=== PATIENT | male | born 1945 | race Caucasian/White ===

== ENCOUNTER 2017-03-14 06:00 | Day surgery (SDC) | payer MEDICARE, BC ==
[~2017-03-14] VITALS: Ht 182.9 cm; Wt 112.3 kg
[~2017-03-14 06:00] MED LIST: ALLO100T51 PO; AMOX500C2 PO; ASPI-558 PO; COLC0.6T44 PO; GLUC1CAP25 PO; MULT-806 PO; NEBI10TA PO
--- OUTSIDE RECORDS SUMMARY | 2017-03-14 06:04 | XMS REPORT | Continuity of Care Document ---
Author Author [facility] Organization [facility] Address Unknown Phone Unavailable Allergies Medications Problems Procedures Results Encounters ACCT No. Visit Date/Time Discharge Status Pt. Type Provider Facility Loc./Unit Complaint [id number] 10/05/2013 08:24:00 10/05/2013 23 :59:59 CLS Outpatient [id number] 09/21/2013 08:40:00 09/21/2013 23 :59:59 CLS Outpatient
--- OUTSIDE RECORDS SUMMARY | 2017-03-14 06:04 | XMS REPORT | Continuity of Care Document ---
Author Author Serena Saucedo LPN Ambulatory Address [address] [place] [address] Phone Care Team Providers Care Wireless Watcher Name Role Phone Tyrell Hodge PP Unavailable Payers Payer name Insurance type Covered alliance party ID Authorization(s) Unknown Problems Condition Effective Dates (start - stop) Clinical Status BPH - *Chronic Foreign body in ear - *Acute Other chronic otitis externa - *Chronic Syncope and collapse - *Resolved Hypertension, Benign - *Chronic Other and unspecified hyperlipidemia - *Chronic OTHER ABNORMAL GLUCOSE - *Resolved Osteoarthrosis, generalized, involving unspecified site - * Chronic Sleep Apnea - *Chronic BPH - *Chronic Gout, unspecified - *Chronic Hypertension, benign - *Chronic Hyperlipidemia, NOS - *Chronic Abnormal glucose - *Chronic Gout, unspecified - *Chronic Overweight (BMI 25-29) - *Chronic Family history of other cardiovascular diseases - *Chronic Other and unspecified hyperlipidemia - *Chronic Pain in joint involving lower leg - *Controlled BPH - *Chronic Gout, unspecified - *Chronic Hypertension, Benign - *Chronic Overweight - *Chronic Calculus of kidney - *Resolved OTHER ABNORMAL GLUCOSE - *Chronic Other and unspecified hyperlipidemia - *Chronic BPH - *Chronic Osteoarthrosis, generalized, involving unspecified site - * Chronic Elevated prostate specific antigen (psa) - *Chronic BPH w/ obstruction - *Chronic Prostate calculus - *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 - * Chronic Elevated prostate specific antigen (psa) - *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 - * Chronic Otalgia, unspecified - *Acute Hypertension, Benign - *Chronic OTHER ABNORMAL GLUCOSE - *Chronic Other abnormal blood chemistry - *Chronic Other and unspecified hyperlipidemia - *Chronic BPH - *Chronic Gout, unspecified - *Chronic Family History Family Member Diagnosis Age At Onset Status Mother (Unknown) Cancer -brain Yes Father (Unknown) CAD Yes Social History Social History Element Description Quantity Unknown Allergies, Adverse Reactions, Alerts Substance Reaction Severity Status Unknown Medications Medication Instructions Dosage Effective Dates (start - stop) Status Vitamin B Complex capsule take 1 Tablet by Oral route every day 0 - Active aspirin 81 mg chewable tablet chew 1 tablet (81MG) by oral route every day 81 MG - Active GLUCOSAMINE-CHONDROITIN (unknown strength) take 1 Tablet by Oral route every day - Active multivitamin capsule take 1 Tablet by Oral route every day 0 - Active DermOtic Oil 0.01 % Ear Drops Place 2 drops into ear(s) up to 3 times a day, as needed for itchiness. - Active finasteride 5 mg tablet Take 1 tablet by mouth at bedtime. - Active Bystolic 5 mg tablet Take 1 tablet by mouth every day. - Active allopurinol 300 mg tablet Take 1 tablet by mouth every day. - Active WelChol 625 mg tablet take 3 tablet (1875MG) by oral route 2 times every day with meals and liquid 1875 MG - Active Immunizations Vaccine Date Status Comments Flu (split) (3 yrs or older) completed Zoster completed - Completed reason: source unspecified Fluzone HD completed - Completed reason: public agency Fluzone Adult QIV completed - Completed reason: public agency Results Test Name Date and Time Measure Units Reference Range Abnormal Flag Comments Unknown Vital Signs Date / Time: Height Weight Pulse Rate Blood Pressure Temperature /08:40:00 72.00 in 250.00 lbs 130/90 mm[Hg] Procedures Procedure Date Unknown Encounters Encounter Location Date Patient Visit [facility] Patient Visit [facility] Patient [facility] Patient Visit [facility] Patient Visit [facility] Patient [facility] Patient Visit [facility] Patient Visit [facility] Patient Visit [facility] Patient Visit [facility] Patient Visit [facility] Advance Directives Directive Effective Date Unknown
--- OUTSIDE RECORDS SUMMARY | 2017-03-14 06:04 | XMS REPORT | Referral Summary ---
Author Author [facility] Organization [facility] Address Unknown Phone Unavailable Care Team Providers Care Demand Equipment Repairer Name Role Phone Bandar Hodge Primary Care Physician [phone] Encounter VC Date(s): 11/02/15 - 11/02/15 [facility], [address] [place] [id number] Discharge Disposition: 01-Home or Self Care Attending Physician: Tyrell Hodge MD Admitting Physician: Tyrell Hodge MD Vital Signs Most recent to 1 oldest [Reference Range]: Blood Pressure 160/100 mmHg [90-140/60-90 mmHg] *HI* (11/02/15 8:11 AM) Problem List Condition Effective Dates Status Health Status Informant Adult-onset Active obesity(Confirmed) Bladder Active trabeculation - mild to moderate(Confirmed) Abnormal blood Active sugar(Confirmed) Hematuria(Confirmed) Active Calcification of Active bladder - multiple(Confirmed) Rotator cuff Active tear(Confirmed) Gout(Confirmed) Active Hyperlipidemia(Confi Active rmed) Hypertension(Confirm Active ed) Incomplete emptying Active of bladder(Confirmed) Urinary Active frequency(Confirmed) Renal Active disease(Confirmed) Kidney calculus - Active right(Confirmed) Metatarsalgia(Confir Active med) Prostatic nodule - Active right(Confirmed) Prostatic Active obstruction - median lobe, moderate(Confirmed) Urinary Active urgency(Confirmed) Bladder stones: 1.5 Active - 2 cm(Confirmed) Allergies, Adverse Reactions, Alerts No Known Medication Allergies Medications allopurinol 300 mg oral tablet 300 mg 1 tabs, Oral, Daily, # 90 tabs, 3 Refill(s), Pharmacy: [facility] [place], 1 tabs Oral Daily,x90 days Start Date: 11/02/15 Stop Date: 10/27/16 Status: Ordered aspirin 81 mg oral tablet, chewable 1 tabs, Oral, Daily Start Date: 08/27/14 Status: Ordered Bystolic 10 mg oral tablet 10 mg 1 tabs, Oral, Daily, X 90 days, # 90 tabs, 3 Refill(s), Pharmacy: [facility] [place], 1 tabs Oral Daily,x90 days Start Date: 11/02/15 Stop Date: 10/27/16 Status: Ordered DermOtic Oil 0.01% otic drops 2 drops, TID, as needed, in affected ear(s) Start Date: 08/27/14 Status: Ordered glucosamine 1 tabs, Oral, Daily, Glucosamine HCl/Chondr masterson a na Start Date: 08/27/14 Status: Ordered Vitamin B Complex oral tablet 1 tabs, Oral, Daily Start Date: 08/27/14 Status: Ordered Welchol 625 mg oral tablet 1,875 mg 3 tabs, Oral, BID, with liquid at meals, # 540 tabs, 3 Refill(s), Pharmacy: [facility] [place], 3 tabs Oral BID,Instr:with liquid at meals Start Date: 11/02/15 Status: Ordered Results Hematology Most recent to 1 oldest [Reference Range]: WBC [4.8-10.8 8.7 10*3/uL 10*3/uL] (11/02/15 9:15 AM) RBC [4.60-6.20] 5.27 (11/02/15 9:15 AM) Hgb [14.0-18.0 16.0 gm/dL gm/dL] (11/02/15 9:15 AM) Hct [42.0-52.0 %] 46.4 % (11/02/15 9:15 AM) MCV [82.0-99.0 fL] 88.0 fL (11/02/15 9:15 AM) MCH [27.0-32.0 pg] 30.4 pg (11/02/15 9:15 AM) MCHC [32.0-36.0 34.5 gm/dL gm/dL] (11/02/15 9:15 AM) RDW [11.5-14.5 %] 13.6 % (11/02/15 9:15 AM) Platelet [150-400 210 10*3/uL 10*3/uL] (11/02/15 9:15 AM) MPV [8.8-14.8 fL] 10.5 fL (11/02/15 9:15 AM) Immature 0.1 % Granulocytes (11/02/15:15 AM) [0.0-1.0 %] Neutrophils [51-75 66 % %] (11/02/15 9:15 AM) Lymphocytes [20-46 19 % %] *LOW* (11/02/15:15 AM) Monocytes [4-11 %] 11 % (11/02/15 9:15 AM) Eosinophils [0-4 %] 2 % (11/02/15 9:15 AM) Basophils [0-2 %] 1 % (11/02/15 9:15 AM) Neutro Absolute 5.73 10*3 [1.90-7.00 10*3] (11/02/15 9:15 AM) Lymph Absolute 1.68 10*3 [0.80-3.30 10*3] (11/02/15 9:15 AM) [place] Absolute 0.98 10*3 [0.30-1.00 10*3] (11/02/15 9:15 AM) Eos Absolute 0.19 10*3 [0.00-0.50 10*3] (11/02/15 9:15 AM) Baso Absolute 0.09 10*3 [0.00-0.20 10*3] (11/02/15 9:15 AM) Chemistry Most recent to 1 oldest [Reference Range]: Sodium Lvl [135-144 142 mEq/L mEq/L] (11/02/15:15 AM) Potassium Lvl 4.7 mEq/L [3.5-5.2 mEq/L] (11/02/15 9:15 AM) Chloride [99-111 108 mEq/L mEq/L] (11/02/15 9:15 AM) CO2 [23-31 mEq/L] 27 mEq/L (11/02/15 9:15 AM) AGAP [3-20] 7 (11/02/15 9:15 AM) BUN [8-26 mg/dL] 16 mg/dL (11/02/15 9:15 AM) Glucose Lvl [70-99 141 mg/dL mg/dL] *HI* (11/02/15 9:15 AM) Creatinine Lvl 0.96 mg/dL [0.72-1.25 mg/dL] (11/02/15 9:15 AM) eGFR [>60 mL/min] >60 mL/min 1 (11/02/15 9:15 AM) Calcium Lvl 9.5 mg/dL [8.9-10.5 mg/dL] (11/02/15 9:15 AM) Albumin Lvl [3.4-4.8 4.2 gm/dL gm/dL] (11/02/15 9:15 AM) Total Protein 7.1 gm/dL [6.2-8.1 gm/dL] (11/02/15 9:15 AM) Globulin [1.8-4.0 2.9 gm/dL gm/dL] (11/02/15 9:15 AM) ALT [0-55 U/L] 34 U/L (11/02/15 9:15 AM) AST [5-34 U/L] 29 U/L (11/02/15 9:15 AM) Alk Phos [40-150 140 U/L U/L] (11/02/15 9:15 AM) Bili Total [0.2-1.2 0.9 mg/dL mg/dL] (11/02/15 9:15 AM) Uric Acid [3.5-7.2 4.8 mg/dL mg/dL] (11/02/15 9:15 AM) PSA (wihout Reflex 3.1 ng/mL 2 Free) [0.0-4.5 (11/02/15 9:15 AM) ng/mL] Chol [0-199 mg/dL] 163 mg/dL (11/02/15 9:15 AM) Trig [0-149 mg/dL] 350 mg/dL *HI* (11/02/15 9:15 AM) HDL [40-84 mg/dL] 32 mg/dL *LOW* (11/02/15 9:15 AM) LDL [0-130 mg/dL] 61 mg/dL (11/02/15 9:15 AM) VLDL Cholesterol 70 mg/dL [0-28 mg/dL] *HI* (11/02/15 9:15 AM) Cardiac Risk 5.1 [0.0-5.7] (11/02/15 9:15 AM) TSH with Reflex Free 2.97 T4 [0.35-4.94] (11/02/15 9:15 AM) Hgb A1c [4.1-5.6 %] 6.2 % *HI* (11/02/15 9:15 AM) eAvg Glucose 131.2 mg/dL (11/02/15 9:15 AM) 1Result Comment: Multiply eGFR results by 1.21 for race. 2Result Comment: AUA PSA Best Practice Guidelines: Age-Adjusted PSA Values by Ethnic Group Age Range Asians - Caucasians Americans 40-49 0-2.0 0-2.0 0-2.5 50-59 0-3.0 0-4.0 0-3.5 60-69 0-4.0 0-4.5 0-4.5 70-79 0-5.0 0-5.5 0-6.5 Urinalysis Most recent to 1 oldest [Reference Range]: UA Color Yellow (11/02/15 9:20 AM) UA Appear Turbid *ABN* (11/02/15 9:20 AM) UA pH [5.0-8.0] 5.0 (11/02/15 9:20 AM) UA Leuk Est Pos 1+ [Negative] *ABN* (11/02/15 9:20 AM) UA Nitrite Negative [Negative] (11/02/15 9:20 AM) UA Protein Negative [Negative] (11/02/15 9:20 AM) UA Glucose Negative [Negative] (11/02/15 9:20 AM) UA Ketones Negative [Negative] (11/02/15 9:20 AM) UA Urobilinogen 0.2 mg/dL [<1.0 mg/dL] (11/02/15 9:20 AM) UA Bili [Negative] Negative (11/02/15 9:20 AM) UA Blood [Negative] Negative (11/02/15 9:20 AM) UA Spec Grav 1.025 [1.003-1.030] (11/02/15 9:20 AM) Type Voided (11/02/15 9:20 AM) UA WBC [0-4] 10-20 *ABN* (11/02/15 9:20 AM) UA RBC [0-4] 0-4 (11/02/15 9:20 AM) Epithelial Cells 2-5 (11/02/15 9:20 AM) UA Hyal Cast [0-3] 4-6 *ABN* (11/02/15 9:20 AM) Immunizations Vaccine Date Refusal Reason influenza virus vaccine, live 08/16/13 influenza virus vaccine, live 08/16/13 influenza virus vaccine, live 09/26/12 zoster vaccine live 09/14/09 Procedures Procedure Date Related Diagnosis Body Site Calibration of urethra 11/26/07 Cystoscopy 11/26/07 Laser bladder lesion therapy - Holmium laser 11/26/07 ablation Colonoscopy 2005 Circumcision Cystoscopy Tonsillectomy Social History Social History Type Response Smoking Status Former smoker Assessment and Plan Extracted from: Title: Ambulatory Patient Education Author: Tyrell Hodge MD Date: 11/02/15 Musculoskeletal Bursitis Bursitis is a swelling and soreness (inflammation) of a fluid-filled sac (bursa ) that overlies and protects a joint. It can be caused by injury, overuse of the joint, arthritis or infection. The joints most likely to be affected are the elbows, shoulders, hips and knees. HOME CARE INSTRUCTIONS Apply ice to the affected area for 15-20 minutes each hour while awake for 2 days. Put the ice in a plastic bag and place a towel between the bag of ice and your skin. Rest the injured joint as much as possible, but continue to put the joint through a full range of motion, 4 times per day. (The shoulder joint especially becomes rapidly "frozen" if not used.) When the pain lessens, begin normal slow movements and usual activities. Only take [id number] or prescription medicines for pain, discomfort or fever as directed by your caregiver. Your caregiver may recommend draining the bursa and injecting medicine into the bursa. This may help the healing process. Follow all instructions for follow-up with your caregiver. This includes any orthopedic referrals, physical therapy and rehabilitation. Any delay in obtaining necessary care could result in a delay or failure of the bursitis to heal and chronic pain. SEEK IMMEDIATE MEDICAL CARE IF: Your pain increases even during treatment. You develop an oral temperature above 102 F (38.9 C) and have heat and inflammation over the involved bursa. MAKE SURE YOU: Understand these instructions. Will watch your condition. Will get help right away if you are not doing well or get worse. Document Released: 10/11/2001 Document Revised: 01/05/2013 Document Reviewed: Exit[employer] Patient Information 2015 [employer]. This information is not intended to replace advice given to you by your health care provider. Make sure you discuss any questions you have with your health care provider. No follow up information was provided. Extracted from: Title: Office Visit Note Author: Tyrell Hodge MD Date: 11/02/15 Assessment/Plan Abnormal blood sugar Lab reviewed and lab pending. Consider invokana 100mg po daily if needed. Samples given in anticipation of need. Hold till confirmation. Ordered: CBC w/ Differential Comprehensive Metabolic Panel Hemoglobin A1c TSH with Reflex Free T4 Urinalysis with Culture if Indicated Adult-onset obesity Diet and exercise as tolerated and feasible. Consider medication when interested. Gout This issue was reviewed, appears stable, and current therapy continued except as mentioned. Appropriate lab was reviewed from the most recent appropriate entry and lab was ordered if needed in the cpoe/nursing orders, and follow up recommended generally in 90 days and no later then six months. Lab pending. Ordered: Uric Acid Hyperlipidemia This issue was reviewed, appears stable, and current therapy continued except as mentioned. Appropriate lab was reviewed from the most recent appropriate entry and lab was ordered if needed in the cpoe/nursing orders, and follow up recommended generally in 90 days and no later then six months. Lab pending. Doing well on welchol. Hypertension This issue was reviewed, appears stable, and current therapy continued except as mentioned. Appropriate lab was reviewed from the most recent appropriate entry and lab was ordered if needed in the cpoe/nursing orders, and follow up recommended generally in 90 days and no later then six months. The patient reports their blood pressure has been stable at home and is not having any significant or related problems. There has been no chest pain, chest pressure, soa/correa. Samples of the new medication were provided as a courtesy. Side effects were discussed and follow up was recommended. Bystolic given. We could consider using metoprolol asa generic substitute. Kidney calculus - right The patient's issue is nearly or completely resolved. There is no further issues or testing desired by them at this time. Resolved. Prostatic nodule - right This issue was reviewed, appears stable, and current therapy continued except as mentioned. Appropriate lab was reviewed from the most recent appropriate entry and lab was ordered if needed in the cpoe/nursing orders, and follow up recommended generally in 90 days and no later then six months. PSA pending. We discussed the likelihood of the psa elevating off the proscar. Referral discussed and declined. Risks discussed. He wants to restart proscar and recheck if psa elevates. Rotator cuff tear The patient's issue is nearly or completely resolved. There is no further issues or testing desired by them at this time. Orders: allopurinol, 300 mg 1 tabs, Oral, Daily, # 90 tabs, 3 Refill(s), Pharmacy: [facility] [place], 1 tabs Oral Daily,x90 days colesevelam, 1,875 mg 3 tabs, Oral, BID, with liquid at meals, # 540 tabs, 3 Refill(s), Pharmacy: [facility] [place], 3 tabs Oral BID,Instr: with liquid at meals nebivolol, 10 mg 1 tabs, Oral, Daily, X 90 days, # 90 tabs, 3 Refill(s), Pharmacy: [facility] [place], 1 tabs Oral Daily,x90 days Lipid Panel Prostate Specific Antigen Addendum Discussed need for screening colonoscopy. by Tyrell Hodge MD on November 02, 2015 09:01:39 RESPIRATORY DIRECTOR
--- OUTSIDE RECORDS SUMMARY | 2017-03-14 06:05 | XMS REPORT | Referral Summary ---
Author Author [facility], [facility] Organization [facility] Address Unknown Phone Unavailable Care Team Providers Care [employer] Draft[employer] Teacher Name Role Phone Bandar Hodge Primary Care Physician [phone] Encounter [facility] [id number] Date(s): 08/28/16 - 08/28/16 [facility], [address] [place] [id number]- Discharge Diagnosis: Rotator cuff tear Discharge Diagnosis: Adult-onset obesity Discharge Diagnosis: Abnormal blood sugar Discharge Diagnosis: Gout Discharge Diagnosis: Hypertension Discharge Diagnosis: Hyperlipidemia Discharge Diagnosis: Erectile dysfunction Discharge Diagnosis: Bladder stones: 1.5 - 2 cm Discharge Disposition: 01-Home or Self Care Attending Physician: Tyrell Hodge MD Admitting Physician: Tyrell Hodge MD Vital Signs Most recent to 1 oldest [Reference Range]: Blood Pressure 156/100 mmHg [90-140/60-90 mmHg] *HI* (08/28/16 8:31 AM) Problem List Condition Effective Dates Status Health Status Informant Adult-onset Active obesity(Confirmed) Bladder Active trabeculation - mild to moderate(Confirmed) Abnormal blood Active sugar(Confirmed) Hematuria(Confirmed) Active Calcification of Active bladder - multiple(Confirmed) Rotator cuff Active tear(Confirmed) Gout(Confirmed) Active Hyperlipidemia(Confi Active rmed) Hypertension(Confirm Active ed) Incomplete emptying Active of bladder(Confirmed) Urinary Active frequency(Confirmed) Renal Active disease(Confirmed) Kidney calculus - Active right(Confirmed) Metatarsalgia(Confir Active med) Erectile Active dysfunction(Confirme d) Prostatic nodule - Active right(Confirmed) Prostatic Active obstruction - median lobe, moderate(Confirmed) Urinary Active urgency(Confirmed) Bladder stones: 1.5 Active - 2 cm(Confirmed) Allergies, Adverse Reactions, Alerts No Known Medication Allergies Medications allopurinol 300 mg oral tablet 300 mg 1 tabs, Oral, Daily, # 90 tabs, 1 Refill(s), Pharmacy: [facility] [place], 1 tabs Oral Daily,x90 days Start Date: 08/28/16 Stop Date: 02/24/17 Status: Ordered aspirin 81 mg oral tablet, chewable 1 tabs, Oral, Daily Start Date: 08/27/14 Status: Ordered Bystolic 10 mg oral tablet See Instructions, TAKE ONE TABLET BY MOUTH EVERY DAY YOU NEED TO HAVE A MED CHECK , # 30 tabs, eRx: [facility] [place], TAKE ONE TABLET BY MOUTH EVERY DAY YOU NEED TO HAVE A MED CHECK Start Date: 08/08/16 Status: Ordered DermOtic Oil 0.01% otic drops 2 drops, TID, as needed, in affected ear(s) Start Date: 08/27/14 Status: Ordered Glucophage 500 mg oral tablet 500 mg 1 tabs, Oral, Daily, # 90 tabs, 1 Refill(s), Pharmacy: [facility] [place], 1 tabs Oral Daily Start Date: 08/28/16 Status: Ordered glucosamine 1 tabs, Oral, Daily, Glucosamine HCl/Chondr masterson a na Start Date: 08/27/14 Status: Ordered omega-3 polyunsaturated fatty acids oral capsule 1 caps, Oral, Daily, # 100 caps, 0 Refill(s) Start Date: 08/28/16 Status: Ordered Vitamin B Complex oral tablet 1 tabs, Oral, Daily Start Date: 08/27/14 Status: Ordered Results Hematology Most recent to 1 oldest [Reference Range]: WBC [4.8-10.8 6.9 10*3/uL 10*3/uL] (08/28/16 9:11 AM) RBC [4.60-6.20] 5.07 (08/28/16 9:11 AM) Hgb [14.0-18.0 15.5 gm/dL gm/dL] (08/28/16 9:11 AM) Hct [42.0-52.0 %] 44.7 % (08/28/16 9:11 AM) MCV [82.0-99.0 fL] 88.2 fL (08/28/16 9:11 AM) MCH [27.0-32.0 pg] 30.6 pg (08/28/16 9:11 AM) MCHC [32.0-36.0 34.7 gm/dL gm/dL] (08/28/16 9:11 AM) RDW [11.5-14.5 %] 13.7 % (08/28/16 9:11 AM) Platelet [150-400 220 10*3/uL 10*3/uL] (08/28/16 9:11 AM) MPV [8.8-14.8 fL] 10.3 fL (08/28/16 9:11 AM) Immature 0.1 % Granulocytes (08/28/16 9:11 AM) [0.0-1.0 %] Neutrophils [51-75 64 % %] (08/28/16 9:11 AM) Lymphocytes [20-46 21 % %] (08/28/16 9:11 AM) Monocytes [4-11 %] 11 % (08/28/16 9:11 AM) Eosinophils [0-4 %] 4 % (08/28/16 9:11 AM) Basophils [0-2 %] 1 % (08/28/16 9:11 AM) Neutro Absolute 4.37 10*3 [1.90-7.00 10*3] (08/28/16 9:11 AM) Lymph Absolute 1.42 10*3 [0.80-3.30 10*3] (08/28/16 9:11 AM) [place] Absolute 0.74 10*3 [0.30-1.00 10*3] (08/28/16 9:11 AM) Eos Absolute 0.27 10*3 [0.00-0.50 10*3] (08/28/16 9:11 AM) Baso Absolute 0.08 10*3 [0.00-0.20 10*3] (08/28/16 9:11 AM) Chemistry Most recent to 1 oldest [Reference Range]: Sodium Lvl [135-144 142 mEq/L mEq/L] (08/28/16 9:11 AM) Potassium Lvl 4.9 mEq/L [3.5-5.2 mEq/L] (08/28/16 9:11 AM) Chloride [99-111 107 mEq/L mEq/L] (08/28/16 9:11 AM) CO2 [23-31 mEq/L] 29 mEq/L (08/28/16: AM) AGAP [3-20] 6 (08/28/16 9: AM) BUN [8-26 mg/dL] 18 mg/dL (08/28/16: AM) Glucose Lvl [70-99 142 mg/dL mg/dL] *HI* (08/28/16: AM) Creatinine Lvl 1.02 mg/dL [0.72-1.25 mg/dL] (08/28/16 AM) eGFR [>60 mL/min] >60 mL/min 1 (08/28/16: AM) Calcium Lvl 9.3 mg/dL [8.9-10.5 mg/dL] (08/28/16 AM) Albumin Lvl [3.4-4.8 4.2 gm/dL gm/dL] (08/28/16: AM) Total Protein 6.8 gm/dL [6.0-7.6 gm/dL] (08/28/16 AM) Globulin [1.8-4.0 2.6 gm/dL gm/dL] (08/28/16: AM) ALT [0-55 U/L] 24 U/L (08/28/16: AM) AST [5-34 U/L] 26 U/L (08/28/16: AM) Alk Phos [40-150 112 U/L U/L] (08/28/16: AM) Bili Total [0.2-1.2 0.8 mg/dL mg/dL] (08/28/16: AM) Uric Acid [3.5-7.2 5.2 mg/dL mg/dL] (08/28/16 9: AM) Chol [0-199 mg/dL] 182 mg/dL (08/28/16: AM) Trig [0-149 mg/dL] 217 mg/dL *HI* (08/28/16 9: AM) HDL [40-84 mg/dL] 33 mg/dL *LOW* (08/28/16: AM) LDL [0-130 mg/dL] 106 mg/dL (11/1/16 9:11 AM) VLDL Cholesterol 43 mg/dL [0-28 mg/dL] *HI* (08/28/16 9:11 AM) Cardiac Risk 5.5 [0.0-5.7] (08/28/16 9:11 AM) Hgb A1c [4.1-5.6 %] 6.5 % *HI* (08/28/16 9:11 AM) eAvg Glucose 139.9 mg/dL (08/28/16 9:11 AM) 1Result Comment: Multiply eGFR results by 1.21 for race. Urinalysis Most recent to 1 oldest [Reference Range]: UA Color Yellow (08/28/16 9:15 AM) UA Appear Clear (08/28/16 9:15 AM) UA pH [5.0-8.0] 5.0 (08/28/16 9:15 AM) UA Leuk Est Pos 2+ [Negative] *ABN* (08/28/16 9:15 AM) UA Nitrite Negative [Negative] (08/28/16 9:15 AM) UA Protein Negative [Negative] (08/28/16 9:15 AM) UA Glucose Negative [Negative] (08/28/16 9:15 AM) UA Ketones Negative [Negative] (08/28/16 9:15 AM) UA Urobilinogen 0.2 mg/dL [<1.0 mg/dL] (08/28/16 9:15 AM) UA Bili [Negative] Negative (08/28/16 9:15 AM) UA Blood [Negative] Negative (08/28/16 9:15 AM) UA Spec Grav 1.029 [1.003-1.030] (08/28/16 9:15 AM) Type Voided (08/28/16 9:15 AM) UA WBC [0-4] 0-2 (08/28/16 9:15 AM) UA Bacteria Moderate *ABN* (08/28/16 9:15 AM) Immunizations Vaccine Date Refusal Reason influenza virus vaccine, inactivated 07/05/16 influenza virus vaccine, live 08/16/13 influenza virus vaccine, live 08/16/13 influenza virus vaccine, live 09/26/12 pneumococcal 13-valent conjugate vaccine 02/25/16 zoster vaccine live 09/14/09 Procedures Procedure Date Related Diagnosis Body Site Calibration of urethra 1/30/08 Cystoscopy 11/26/07 Laser bladder lesion therapy - Holmium laser 11/26/07 ablation Colonoscopy 2005 Circumcision Cystoscopy Tonsillectomy Social History Social History Type Response Smoking Status Former smoker Assessment and Plan Extracted from: Title: Ambulatory Patient Education Author: Tyrell Hodge MD Date: Home Health Care Diabetes and Exercise Exercising regularly is important. It is not just about losing weight. It has many health benefits, such as: Improving your overall fitness, flexibility, and endurance. Increasing your bone density. Helping with weight control. Decreasing your body fat. Increasing your muscle strength. Reducing stress and tension. Improving your overall health. People with diabetes who exercise gain additional benefits because exercise: Reduces appetite. Improves the body's use of blood sugar (glucose). Helps lower or control blood glucose. Decreases blood pressure. Helps control blood lipids (such as cholesterol and triglycerides). Improves the body's use of the hormone insulin by: Increasing the body's insulin sensitivity. Reducing the body's insulin needs. Decreases the risk for heart disease because exercising: Lowers cholesterol and triglycerides levels. Increases the levels of good cholesterol (such as high-density lipoproteins [HDL]) in the body. Lowers blood glucose levels. YOUR ACTIVITY PLAN Choose an activity that you enjoy, and set realistic goals. To exercise safely, you should begin practicing any new physical activity slowly, and gradually increase the intensity of the exercise over time. Your health care provider or nurses educator can help create an activity plan that works for you. General recommendations include: Encouraging children to engage in at least 60 minutes of physical activity each day. Stretching and performing strength training exercises, such as yoga or weight lifting, at least 2 times per week. Performing a total of at least 150 minutes of moderate-intensity exercise each week, such as brisk walking or water aerobics. Exercising at least 3 days per week, making sure you allow no more than 2 consecutive days to pass without exercising. Avoiding long periods of inactivity (90 minutes or more). When you have to spend an extended period of time sitting down, take frequent breaks to walk or stretch. RECOMMENDATIONS FOR EXERCISING WITH TYPE 1 OR TYPE 2 DIABETES Check your blood glucose before exercising. If blood glucose levels are greater than 240 mg/dL, check for urine ketones. Do not exercise if ketones are present. Avoid injecting insulin into areas of the body that are going to be exercised. For example, avoid injecting insulin into: The arms when playing tennis. The legs when jogging. Keep a record of: Food intake before and after you exercise. Expected peak times of insulin action. Blood glucose levels before and after you exercise. The type and amount of exercise you have done. Review your records with your health care provider. Your health care provider will help you to develop guidelines for adjusting food intake and insulin amounts before and after exercising. If you take insulin or oral hypoglycemic agents, watch for signs and symptoms of hypoglycemia. They include: Dizziness. Shaking. Sweating. Chills. Confusion. Drink plenty of water while you exercise to prevent dehydration or heat stroke. Body water is lost during exercise and must be replaced. Talk to your health care provider before starting an exercise program to make sure it is safe for you. Remember, almost any type of activity is better than none. This information is not intended to replace advice given to you by your health care provider. Make sure you discuss any questions you have with your health care provider. Document Released: 01/03/2005 Document Revised: 02/28/2016 Document Reviewed: [employer] Patient Education 2016 [employer] No follow up information was provided. Extracted from: Title: Office Visit Note Author: Tyrell Hodge MD Date: 08/28/16 Assessment/Plan Abnormal blood sugar This issue was reviewed, appears stable, and current therapy continued except as mentioned. Appropriate lab was reviewed from the most recent appropriate entry and lab was ordered if needed in the cpoe/nursing orders, and follow up recommended generally in 90 days and no later then six months. Metformin 500mg po daily. Lab pending. Ordered: CBC w/ Differential Comprehensive Metabolic Panel Hemoglobin A1c Lipid Panel Urinalysis with Culture if Indicated Adult-onset obesity Diet and exercise as tolerated and feasible. Consider medication when interested. Bladder stones: 1.5 - 2 cm The patient's issue is nearly or completely resolved. There is no further issues or testing desired by them at this time. Seeing Urology. Erectile dysfunction This issue was reviewed, appears stable, and current therapy continued except as mentioned. Appropriate lab was reviewed from the most recent appropriate entry and lab was ordered if needed in the cpoe/nursing orders, and follow up recommended generally in 90 days and no later then six months. Gout The patient's issue is nearly or completely resolved. There is no further issues or testing desired by them at this time. Stableon allopurinol. Lab pending. Ordered: Uric Acid Hyperlipidemia This issue was reviewed, appears stable, and current therapy continued except as mentioned. Appropriate lab was reviewed from the most recent appropriate entry and lab was ordered if needed in the cpoe/nursing orders, and follow up recommended generally in 90 days and no later then six months. Lab pending. Consider zocor if needed. Welchol stopped due to expenses at this time. Ordered: Lipid Panel Hypertension This issue was reviewed, appears stable, and current therapy continued except as mentioned. Appropriate lab was reviewed from the most recent appropriate entry and lab was ordered if needed in the cpoe/nursing orders, and follow up recommended generally in 90 days and no later then six months. The patient had an elevated blood pressure reading and is to monitor their bp and call with a report if consistently > 140/90. Samples of the new medication were provided as a courtesy. Side effects were discussed and follow up was recommended. Bystolic provided and discussed. Rotator cuff tear The patient's issue is nearly or completely resolved. There is no further issues or testing desired by them at this time. Addendum I have him down 8 kg or about 17 lbs since his last visit. by Tyrell Hodge MD on August 28, 2016 09:12:16 CDT
--- OUTSIDE RECORDS SUMMARY | 2017-03-14 06:05 | XMS REPORT | Continuity of Care Document ---
Author Author Rosetta Gilbert LPN Ambulatory Address [address] [place] [id number] Phone Unavailable Care Team Providers Care Taper Machine Name Role Phone Tyrell Hodge PP Unavailable Payers Payer name Insurance type Covered green party ID Authorization(s) Unknown Problems Condition Effective Dates (start - stop) Clinical Status Hypertension, benign - *Chronic Hyperlipidemia, NOS - *Chronic Abnormal glucose - *Chronic Gout, unspecified - *Chronic Overweight (BMI 25-29) - *Chronic Family history of other cardiovascular diseases - *Chronic Other and unspecified hyperlipidemia - *Chronic Pain in joint involving lower leg - *Controlled BPH - *Chronic Foreign body in ear - *Acute Other chronic otitis externa - *Chronic Syncope and collapse - *Resolved Hypertension, Benign - *Chronic Other and unspecified hyperlipidemia - *Chronic OTHER ABNORMAL GLUCOSE - *Resolved Osteoarthrosis, generalized, involving unspecified site - * Chronic Sleep Apnea - *Chronic BPH - *Chronic Gout, unspecified - *Chronic Gout, unspecified - *Chronic Hypertension, Benign - *Chronic Overweight - *Chronic Calculus of kidney - *Resolved OTHER ABNORMAL GLUCOSE - *Chronic Other and unspecified hyperlipidemia - *Chronic BPH - *Chronic Osteoarthrosis, generalized, involving unspecified site - * Chronic BPH - *Chronic Elevated prostate specific antigen (psa) - *Chronic [...] Dosage Effective Dates (start - stop) Status WelChol 625 mg tablet take 3 tablet (1875MG) by oral route 2 times every day with meals and liquid 1875 MG - Active WelChol 625 mg tablet take 3 tablet (1875MG) by oral route 2 times every day with meals and liquid 1875 MG - No Longer Active Vitamin B Complex capsule take 1 Tablet by Oral route every day 0 - Active aspirin 81 mg chewable tablet chew 1 tablet (81MG) by oral route every day 81 MG - Active GLUCOSAMINE-CHONDROITIN (unknown strength) take 1 Tablet by Oral route every day - Active multivitamin capsule take 1 Tablet by Oral route every day 0 - Active DermOtic Oil 0.01 % ear drops Place 2 drops into ear(s) up to 3 times a day, as needed for itchiness. - Active finasteride 5 mg tablet Take 1 tablet by mouth at bedtime. - Active Bystolic 5 mg tablet Take 1 tablet by mouth every day. - Active allopurinol 300 mg tablet Take 1 tablet by mouth every day. - Active Immunizations Vaccine Date Status Comments [...] Height Weight Pulse Rate Blood Pressure Temperature /08:24:00 72.00 in 256.00 lbs 160/110 mm[Hg] 97.8 F Procedures Procedure Date Unknown Encounters Encounter Location Date Patient Visit [facility] Patient Visit [facility] Patient Visit [facility] Patient Visit [facility] Patient Visit [facility] Patient Visit [facility] Patient Visit [facility] Patient Visit [facility] Patient Visit [facility] Patient Visit [facility] Patient Visit [facility] Urology Advance Directives Directive Effective Date Unknown
[2017-03-14 06:18] VITALS: Ht 182.9 cm; Wt 112.3 kg
[2017-03-14 06:19] VITALS: BP 162/103; PULSE 73; RESP 14; TEMP 98; O2SAT 93
[2017-03-14] MEDS ORDERED: METF500T4 PO (06:30)
[2017-03-14] MEDS ORDERED: NORMAL SALINE 1,000 ML IV ONE (07:00)
[2017-03-14] MEDS ORDERED: LIDOCAINE 1% (10mg/ml) 2ml SDV INJ ONE (07:00)
--- NOTE | 2017-03-14 07:14 | ANESPREOP ---
Anesthesia Record Date and Time DATE: 03/14/17 TIME: 07:13 Proposed Surgical Procedure COLONOSCOPY Allergies: Coded Allergies: No Known Drug Allergies (Verified Allergy, Unknown, 03/14/17) Ht/Wt/BMI Height: 6 ' 0.00 " Weight: 112.300 kg BMI: 33.6 kg/m2 Vital Signs Date Time Temp Pulse Resp B/P Pulse Ox O2 Delivery O2 Flow Rate FiO2 03/14/17 06:19 98.0 73 14 162/103 93 Room Air Medications Allopurinol (Allopurinol) 100 Mg Tablet, 200 MG PO DAILY, (Reported) Last Taken: on 02/27/17 0800 Amoxicillin (Amoxicillin) 500 Mg Capsule, Unknown Dose PO Q6H, (Reported) Last Taken: on 03/06/17 2200 Aspirin (Aspir 81) 81 Mg Tablet.dr, 81 MG PO DAILY, (Reported) Last Taken: on 03/11/17 Glucosa Sanchez 2KCL/Chondroitin Sanchez (Glucosamine & Chondroitin Cap) 1 Cap Capsule, 1 CAP PO DAILY, (Reported) Last Taken: on 03/11/17 Metformin HCl (Metformin HCl) 500 Mg Tablet, 500 MG PO DAILY, (Reported) Take one tablet, by mouth, 2 times a day with Meals. Last Taken: on 03/11/17 Multivitamins (Multivitamin) 1 Tab Tablet, 1 TAB PO DAILY, (Reported) Last Taken: on 03/11/17 Nebivolol HCl (Bystolic) 10 Mg Tablet, 1 TAB PO DAILY, (Reported) Last Taken: on 03/06/17 0800 Discontinued Medications Amoxicillin Trihydrate (Amoxicillin) 250 Mg Tablet, 250 MG PO QID, (Reported) Currently on Beta Fannie: Yes Beta Fannie Last Taken: 03-13-17 @ 0800 Medical/Surgical History Anesthesia PMH: Reports: *Diabetes (NIDDM), *Hypertension, Renal Disease (PER H &P-PT DENIES), Denies: Anesthesia Reactions (NO AIRWAY ISSUES), Arthritis, Cancer, Clotting Problems, Glaucoma, Malignant Hyperthermia, Sleep Apnea, Thyroid Disease Smoking Status: Never smoker Has pt. smoked today?: No Use Chewing Tobacco?: No Second Hand Exposure: No Substance Use Type: does not use Alcohol Intake: rarely Past Surgical History Orthopedic Surgeries: Yes - R SHOULDER REPLACEMENT Abdominal Surgeries: No Genitourinary Surgeries: Yes - CYSTOSCOPY with Stone Basketing Cardiac Surgeries: Endocrine Surgeries: Reproductive Surgeries: Neurological Surgeries: Ear Surgeries: Nose Surgeries: Yes - Tonsillectomy Throat Surgeries: Yes - T&A Other Surgeries: Yes - ROOT CANAL 03/12/17; [place] Teeth; Colonoscopy Hx of Motion Sickness: No Physical Exam Respiratory: Lungs clear Cardiovascular: FOUND Regular rate, rhythm Airway Assessment Mallampati Score: II TMD: 3 Fingerbreadths Neck Extension: Good ASA: 2 Plan Anesthesia Plan: TIVA Discussion Discussed risks/options/alternatives of anesthesia and questions answered. Patient consents. Nursing pain assessment noted. Attestation Statement Prior to the delivery of any anesthetic medication, I examined the patient, developed the plan, obtained the patient's consent and discussed the risk and benefits of the procedure with the patient/guardian. MARIELLE WALLER March 14, 2017 07:14
[2017-03-14] MEDS ORDERED: PROPOFOL 500mg 50 ML IV ONE (07:17)
[2017-03-14] MEDS ORDERED: LIDOCAINE 2% (20mg/ml) 5ml PF SDV ONE (07:17)
[2017-03-14] MEDS ORDERED: FENTANYL 100mcg/2ml INJECTION ONE (07:58)
[2017-03-14 08:06] VITALS: BP 133/69; PULSE 68; RESP 12; TEMP 97; O2SAT 92
--- NOTE | 2017-03-14 08:20 | ANESPO ---
Post-Op Note Date 03/14/17 Status Pt Participated in Evaluation: Pt participated in person Vital Signs Date Time Temp Pulse Resp B/P Pulse Ox O2 Delivery O2 Flow Rate FiO2 03/14/17 08:06 97.0 68 12 133/69 92 Room Air Respiratory Function: Airway patent Cardiovascular Function: Regular pulse Mental Status: Alert/oriented Pain Level Intensity: 0 Hydration: Taking po fluids Complications during Recovery None apparent Follow-Up Instructions Instructions Per Surgeon MARIELLE WALLER March 14, 2017 08:20
[2017-03-14 08:21] VITALS: BP 130/74; PULSE 63; RESP 14; O2SAT 93
[2017-03-14 08:36] VITALS: BP 137/75; PULSE 60; RESP 16; O2SAT 94
--- NOTE | 2017-03-14 13:04 | OPNOTEF ---
DATE OF SERVICE 03/14/2017 SURGEON Steve Blackwood MD PREOPERATIVE DIAGNOSIS Colorectal cancer screening. POSTOPERATIVE DIAGNOSIS Colorectal cancer screening, sigmoid diverticulosis. PROCEDURE Colonoscopy ANESTHESIA TIVA BRIEF HISTORY/INDICATIONS Mr. Linda is a 71-year-old gentleman who presents today to [facility] to undergo a colonoscopy for screening purposes. For completeness please refer to notes included in the patient's chart. FINDINGS Upon colonoscopy there was no evidence for angiodysplastic lesions, polyps or [place] malignancies. The patient was found to have a minimal number of diverticula within the sigmoid colon region. NARRATIVE OF PROCEDURE After informed consent was obtained, the patient was brought to the endoscopy suite and placed on the table in the left lateral decubitus position. The patient subsequently underwent total intravenous anesthesia by the nurse welder production line combination per my request. A formal timeout was then completed. Next, a digital rectal examination was performed. Normal sphincter tone. No rectal masses were appreciated. An Olympus colonoscope was inserted in the anus and advanced with the lumen of the colon under direct visualization at all times until the cecum was ascertained. Triangulation of the tenia coli, ileocecal valve and appendiceal lumen were all visualized. The scope was then slowly withdrawn, again maintaining visualization of the lumen at all times. As stated above, the entire colon was without evidence for angiodysplastic lesions, polyps or [place] malignancies. The patient was found to have a minimal number of diverticula within the sigmoid colon region. The scope continued to be withdrawn until it was brought forth back into the rectal vault. A J-maneuver was then performed. No worrisome perianal pathology was noted. The scope was allowed to straighten and was withdrawn through the anal verge. The patient tolerated the procedure without difficulty and was sent back to the preoperative area in stable condition. Secondary to the absence of findings upon this colonoscopy, the patient will not need to undergo a repeat colonoscopy until ten years from now unless new indications should arise. KANWAL
== END 2017-03-14 08:45 | disposition home or self-care (01) ==
LOC: SCU 06:00
PROVIDERS: ATTEND Surgery
DX: Z12.11 Encounter for screening for malignant neoplasm of colon (principal); K57.30 Diverticulosis of large intestine without perforation or abscess without bleeding; E66.9 Obesity, unspecified; Z68.33 Body mass index [BMI] 33.0-33.9, adult; E78.5 Hyperlipidemia, unspecified; I10 Essential (primary) hypertension; Z79.82 Long term (current) use of aspirin; Z79.84 Long term (current) use of oral hypoglycemic drugs; Z79.899 Other long term (current) drug therapy; Z87.891 Personal history of nicotine dependence
CPT/HCPCS: 82948; G0121; J3010; J7030